=== PATIENT | female | born 2000 | race Caucasian/White ===

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

== ENCOUNTER 2019-05-26 13:21 | Emergency (ER) | payer OTHER | END 2019-05-26 16:43 | disposition short-term general hospital (02) | LOC: ERS 13:21 | DX: T74.21XA Adult sexual abuse, confirmed, initial encounter (principal); S60.511A Abrasion of right hand, initial encounter; J45.909 Unspecified asthma, uncomplicated; F17.210 Nicotine dependence, cigarettes, uncomplicated; Y07.9 Unspecified perpetrator of maltreatment and neglect | CPT/HCPCS: 99285 ==